=== PATIENT | male | born 1990 | race African-American/Black ===

== ENCOUNTER 2019-07-12 10:51 | Emergency (ER) | payer OTHER ==
--- NOTE | 2019-07-12 11:45 | Emergency Department Report ---
HPI - General Chief Complaint: Earache Time Seen by Provider: 07/12/19 11:27 - HPI HPI: 29-year-old male presents to the emergency department with complaint of some decreased hearing that he says has been going on over the past year. He says that the right side appears to be more affected than the left and that he feels he cannot hear his front seat passenger very well when he is driving. He does not have a primary care physician. He has not had any evaluation or treatment for the symptoms prior to arrival today. No past medical history. He denies any ear pain, drainage. ED Past Medical Hx - Past Medical History Previous Medical History?: No - Surgical History Past Surgical History?: No - Social History Smoking Status: Never Smoker Substance Use Type: None ED Review of Systems ROS: Stated complaint: HEARING LOSS/EAR PAIN Other details as noted in HPI Comment: All other systems reviewed and negative Constitutional: denies: chills, fever ENT: hearing loss. denies: ear pain Skin: denies: rash, lesions Neurological: denies: headache Physical Exam - Physical Exam Vital Signs: Vital Signs 07/12/19 11:01 Temperature 98.5 F Pulse Rate 77 Respiratory 16 Rate Blood Pressure 128/84 O2 Sat by Pulse 98 Oximetry Physical Exam: GENERAL: The patient is well-developed well-nourished. HENT: Normocephalic. Atraumatic. Patient has moist mucous membranes. Normal appearing bilateral external ear canals and tympanic membranes. EYES: Extraocular motions are intact. Pupils equal reactive to light bilaterally. NECK: Supple. Trachea is midline. SKIN: Skin is warm and dry. NEURO: The patient is awake, alert, and oriented. The patient is cooperative. The patient has no focal neurologic deficits. Normal speech. MUSCULOSKELETAL: There is no tenderness or deformity. There is no evidence of acute injury. ED Course Vital Signs 07/12/19 11:01 Temperature 98.5 F Pulse Rate 77 Respiratory 16 Rate Blood Pressure 128/84 O2 Sat by Pulse 98 Oximetry ED Medical Decision Making - Medical Decision Making This patient presents to the emergency department with what appears to be some chronic bilateral hearing loss with right greater than left. There are no signs of any otitis media, otitis externa, cerumen impaction or any obvious etiology. Vital signs stable throughout his ED course. He does not have any complaints of ear pain, headache, or any other neurological deficits. He does not appear to have any emergent medical condition and therefore can follow up outpatient with otolaryngology. - Differential Diagnosis otitis media, otitis externa, cerumen impaction Critical Care Time: No Critical care attestation.: If time is entered above; I have spent that time in minutes in the direct care of this critically ill patient, excluding procedure time. ED Disposition Clinical Impression: Decreased hearing Qualifiers: Laterality: bilateral Qualified Code(s): H91.93 - Unspecified hearing loss, bilateral Disposition: TO HOME OR SELFCARE Is pt being admited?: No Condition: Stable Additional Instructions: I am giving you a referral for a few different otolaryngologists, also known as ENT physicians, to follow-up regarding your chronic hearing loss. Return to the emergency Department with any worsening of your symptoms or any acute distress. Referrals: CELIA PEREZ MD [Staff Physician] - 2-3 Days JAYLA MOONEY MD [Staff Physician] - 2-3 Days JUNIOR JULIAN MD [Staff Physician] - 2-3 Days Time of Disposition: 11:45
[2019-07-12 12:01] VITALS: BP 124/78
== END 2019-07-12 11:45 | disposition home or self-care (01) ==
LOC: ED 10:51
DX: H91.93 Unspecified hearing loss, bilateral (principal)
CPT/HCPCS: 99282